=== PATIENT | female | born 1965 | race African-American/Black ===

== ENCOUNTER 2016-04-28 13:30 | Inpatient (IN) | payer OTHER ==
[2016-04-28 15:50] VITALS: BMI 35.2
--- NOTE | 2016-04-28 17:24 | HP ---
CIWA Score - CIWA Score Nausea/Vomitin-No Nausea/No Vomiting Muscle Tremors: 4-Moderate,w/Arms Extend Anxiety: 4-Mod. Anxious/Guarded Agitation: 4-Moderately Restless Paroxysmal Sweats: 1-Minimal Palms Moist Orientation: 0-Oriented Tacttile Disturbances: 3-Moderate Itch/Numb/Burn Auditory Disturbances: 0-None Visual Disturbances: 0-None Headache: 0-None Present CIWA-Ar Total Score: 16 Admission ROS BHS - HPI Chief Complaint: DETOX TX FOR ALCOHOL DEPENDENCE Allergies/Adverse Reactions: Allergies Allergy/AdvReac Type Severity Reaction Status Date / Time Penicillins Allergy Severe Difficulty Verified 04/28/16 16:06 Breathing History of Present Illness: 51 Y/O AA/FEMALE WITH A HX OF ALCOHOL AND COCAINE DEPENDENCE SEEKING DETOX TX. Exam Limitations: No Limitations - Ebola screening Have you traveled outside of the country in the last 21 days: No Have you had contact with anyone from an Ebola affected area: No Have you been sick,other than usual withdrawal symptoms: No - Review of Systems Constitutional: Chills, Night Sweats, Changes in sleep EENT: reports: Blurred Vision (WEARS GLASSES), Tearing, Nose Congestion, Dental Problems (NO TEETH), Throat Pain Respiratory: reports: Cough, Shortness of Breath (HX ASTHMA), Wheezing, Productive cough (YELLOW PHLEGM) Cardiac: reports: Lightheadedness GI: reports: Diarrhea, Nausea, Vomiting : reports: No Symptoms Reported Musculoskeletal: reports: Back Pain, Joint Pain, Muscle Pain Integumentary: reports: Dryness Neuro: reports: Dizziness Endocrine: reports: No Symptoms Reported Hematology: reports: Anemia Psychiatric: reports: Orientated x3, Anxious, Depressed Other Systems: Reviewed and Negative Patient History - Patient Medical History Hx Anemia: Yes Hx Asthma: Yes (MDI) Hx Chronic Obstructive Pulmonary Disease (COPD): No Hx Cardiac Disorders: Yes ("SLIGHT VA LAST MONTH") Hx Hypertension: No Hx Hypercholesterolemia: Yes (NORMALIZED WITH MEDS IN THE PAST. NO MEDS NOW.) HX Cerebrovascular Accident: No Hx Seizures: No Hx Diabetes: No Hx Gastrointestinal Disorders: Yes (GERD) Hx Genitourinary Disorders: No Hx Sexually Transmitted Disorders: No Hx Renal Disease (ESRD): No Hx Thyroid Disease: No Hx Human Immunodeficiency Virus (HIV): Yes (SINCE 1989-ON MEDS-LAST TAKEN ONE WEEK AGO PER PT.) Hx Hepatitis C: Yes Hx Depression: Yes Hx Suicide Attempt: No (DENIES) Hx Schizophrenia: No - Patient Surgical History Past Surgical History: Yes Hx Orthopedic Surgery: Yes (L KNEE AND L SHOULDER) Other Surgical History: TONSILLECTOMY Anesthesia Reaction: No - PPD History Previous Implant?: Yes Documented Results: Negative w/o proof Implanted On Prior [facility] Admission?: No PPD to be Administered?: Yes - Reproductive History Patient is a Female of Child Bearing Age (11 -55 yrs old): Yes (MENOPAUSAL) LMP comment: AT 36 YRS Patient : No - Smoking Cessation Smoking history: Current every day smoker Have you smoked in the past 12 months: Yes Aproximately how many cigarettes per day: 20 Hx Chewing Tobacco Use: No Initiated information on smoking cessation: Yes 'Breaking Loose' booklet given: 04/28/16 - Substance & Tx. History Hx Alcohol Use: Yes Hx Substance Use: Yes (COCAINE) Substance Use Type: Alcohol, Cocaine Hx Substance Use Treatment: Yes ([facility]-DETOX/REHAB) - Substances Abused Alcohol Route: Oral Frequency: Daily Amount used: 1 PINT VODKA Age of first use: 24 Date of Last Use: 04/28/16 Cocaine Route: Smoking Frequency: Daily Amount used: $100 AND UP Age of first use: 24 Date of Last Use: 04/28/16 Family Disease History - Family Disease History Family History: Denies Admission Physical Exam BHS - Vital Signs Vital Signs: Vital Signs - 24 hr 04/28/16 15:47 Temperature 98.1 F Pulse Rate 94 H Respiratory 20 Rate Blood Pressure 124/67 - Physical General Appearance: Yes: Moderate Distress, Obese, Irritable, Anxious HEENTM: Yes: EOMI, Normocephalic, GEMA, Pharynx Normal, Nasal Congestion, Rhinorrhea, Muffled/Hoarse Voice, Other (NO REDNESS OR SWELLING.) Respiratory: Yes: Chest Non-Tender, No Respiratory Distress, Wheezing Neck: Yes: Supple, Trachea in good position Breast: Yes: Breast Exam Deferred Cardiology: Yes: Regular Rhythm, Regular Rate, S1, S2 Abdominal: Yes: Normal Bowel Sounds, Non Tender, Soft Genitourinary: Yes: Other (N/C) Musculoskeletal: Yes: full range of Motion, Gait Steady Extremities: Yes: Normal Range of Motion, Non-Tender Neurological: Yes: 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 NML intact, Fully Oriented, Alert Integumentary: Yes: Dry, Warm Lymphatic: Yes: Within Normal Limits - Diagnostic (1) Alcohol dependence with uncomplicated withdrawal Current Visit: Yes Status: Acute (2) Cocaine dependence, uncomplicated Current Visit: Yes Status: Acute (3) HIV (human immunodeficiency virus infection) Current Visit: Yes Status: Acute (4) Asthma Current Visit: Yes Status: Chronic Qualifiers: Asthma severity: mild intermittent Asthma complication type: uncomplicated Qualified Code(s): J45.20 - Mild intermittent asthma, uncomplicated (5) GERD (gastroesophageal reflux disease) Current Visit: Yes Status: Chronic Qualifiers: Esophagitis presence: without esophagitis Qualified Code(s): K21.9 - Gastro-esophageal reflux disease without esophagitis (6) History of anemia Current Visit: Yes Status: Suspected Cleared for Admission S - Detox or Rehab [facility] Level of Care: Medically Managed Detox Regimen/Protocol: Librium S Breath Alcohol Content Breath Alcohol Content: 0 Urine Pregancy Test - Result Urine Test Results: Negative- NO Line Present Urine Drug Screen - Results Drug Screen Negative: No Urine Drug Screen Results: LARRY-Cocaine
[2016-04-28] MEDS ORDERED: hydrOXYzine PAMOATE 25 MG CAPSULE (FP) PO PRN (17:39)
[2016-04-28] MEDS ORDERED: guaiFENesin/D-METHORPHAN HB 10 ML UNIT-DOSE CUPS PO PRN (17:39)
[2016-04-28] MEDS ORDERED: NICOTINE POLACRILEX 4 MG GUM BUC PRN (17:39)
[2016-04-28] MEDS ORDERED: ACETAMINOPHEN 325 MG TABLET (FP) PO PRN (17:39)
[2016-04-28] MEDS ORDERED: MAGNESIUM CITRATE 300 ML BOTTLE PO PRN (17:39)
[2016-04-28] MEDS ORDERED: IBUPROFEN 400 MG TABLET (FP) PO PRN (17:39)
[2016-04-28] MEDS ORDERED: MAGNESIUM HYDROX 2400MG/30ML ORAL SUSPENSION 30 ML CUP PO PRN (17:39)
[2016-04-28] MEDS ORDERED: chlordiazePOXIDE HCL 25 MG CAPSULE PO PRN (17:39)
[2016-04-28] MEDS ORDERED: MENTHOL/PHENOL 1 EACH UD MM PRN (17:39)
[2016-04-28] MEDS ORDERED: MAG HYDROX/AL HYDROX/SIMETH 30 ML UNIT-DOSE CUP PO PRN (17:39)
[2016-04-28] MEDS ORDERED: P-EPHED 60MG/TRIPROLIDI 2.5MG TABLET PO PRN (17:39)
[2016-04-28] MEDS ORDERED: LOPERAMIDE HCL 2 MG CAPSULE PO PRN (17:39)
[2016-04-28] MEDS ORDERED: ALBUTEROL SO4 6.7 GM HFA INHALER IH PRN (17:43)
[2016-04-28] MEDS ORDERED: ALBUTEROL SO4 2.5/IPRATROPIUM 0.5 INH SOL 3 ML VIAL.NEB. NEB PRN (18:00)
[2016-04-28] MEDS ORDERED: AMMONIUM LACTATE 12% LOTION 225 GM BOTTLE TP PRN (18:10)
[2016-04-28] MEDS ORDERED: chlordiazePOXIDE HCL 25 MG CAPSULE PO ONE (18:15)
--- NOTE | 2016-04-28 19:02 | PN ---
BHS Progress Note Note: RECEIVED PHARMACIST CALL NEBULIZER SHOULD BE PRN
[2016-04-28] MEDS: NICOTINE 21 MG/24 HOURS TOPICAL PATCH TD SCH (19:16)
[2016-04-28] MEDS: chlordiazePOXIDE HCL 25 MG CAPSULE PO SCH ×2 (19:21→22:32)
[2016-04-28] MEDS ORDERED: diphenhydrAMINE HCL 50 MG CAPSULE PO PRN (22:00)
[2016-04-28] MEDS: BUDESONIDE/FORMETEROL FUMARATE 160/4.5 mcg INHALER IH SCH (22:32)
[2016-04-28] MEDS: THIAMINE HCL 100 MG TABLET (FP) PO SCH (22:32)
[2016-04-28] MEDS: MONTELUKAST NA 10 MG TABLET PO SCH (22:32)
[2016-04-28] MEDS: PATIENT'S OWN MEDICATION (NON-FORMULARY) (Doxycycline Hyclate [Doxycycline Hyclate] 100 MG PO SCH (23:10)
[2016-04-28] MEDS: PATIENT'S OWN MEDICATION (NON-FORMULARY) (Darunavir/Cobicistat [Prezcobix 800 Mg-150 Mg Ta PO SCH (23:10)
[2016-04-28] MEDS: PATIENT'S OWN MEDICATION (NON-FORMULARY) (Emtricitabine/Tenofov Alafenam [Descovy 200-25 M PO SCH (23:11)
[2016-04-28 23:15] LABS: URINE APPEARANCE SLCLOUDY; URINE BILIRUBIN NEGATIVE (NEGATIVE); URINE BLOOD NEGATIVE (NEGATIVE); URINE COLOR AMBER; URINE GLUCOSE (UA) NEGATIVE (NEGATIVE); URINE KETONE NEGATIVE (NEGATIVE); URINE LEUK ESTERASE NEGATIVE (NEGATIVE); URINE NITRITE NEGATIVE (NEGATIVE); URINE PROTEIN NEGATIVE (NEGATIVE); URINE UROBILINOGEN 4.0 E.U/dl E.U./dl (0.2-1.0)
[2016-04-29] MEDS: chlordiazePOXIDE HCL 25 MG CAPSULE PO SCH (05:55)
[2016-04-29] MEDS ORDERED: diazePAM 5 MG TABLET PO PRN (09:08)
[2016-04-29] MEDS ORDERED: diazePAM 5 MG TABLET PO ONE (09:08)
[2016-04-29 10:18] LABS: MCHC 32.3 g/dl (32.0-36.0); MEAN CELL VOLUME 80.4 fl (80-96); MEAN PLT VOLUME 8.7 fl (7.5-11.1); PLATELET COUNT 255 K/MM3 (134-434); RDW 13.7 % (11.6-15.6); WHITE BLOOD COUNT 5.3 K/mm3 (4.0-10.0)
[2016-04-29] MEDS: BUDESONIDE/FORMETEROL FUMARATE 160/4.5 mcg INHALER IH SCH ×2 (10:32→22:18)
[2016-04-29] MEDS: PRENATAL VITAMINS W/ FOLIC ACID TABLET (FP) PO SCH (10:32)
[2016-04-29] MEDS: PATIENT'S OWN MEDICATION (NON-FORMULARY) (Emtricitabine/Tenofov Alafenam [Descovy 200-25 M PO SCH (10:34)
[2016-04-29] MEDS: PATIENT'S OWN MEDICATION (NON-FORMULARY) (Doxycycline Hyclate [Doxycycline Hyclate] 100 MG PO SCH ×2 (10:35→22:20)
[2016-04-29] MEDS: PATIENT'S OWN MEDICATION (NON-FORMULARY) (Darunavir/Cobicistat [Prezcobix 800 Mg-150 Mg Ta PO SCH (10:35)
[2016-04-29] MEDS: NICOTINE 21 MG/24 HOURS TOPICAL PATCH TD SCH (10:37)
[2016-04-29] MEDS ORDERED: POTASSIUM CHLORIDE TABS 20 MEQ TABLET.ER (FP) PO ONE (10:40)
--- NOTE | 2016-04-29 10:40 | PN ---
S CIWA - CIWA Score Nausea/Vomitin Muscle Tremors: 3 Anxiety: 3 Agitation: 3 Paroxysmal Sweats: 1-Minimal Palms Moist Orientation: 0-Oriented Tacttile Disturbances: 1-Very Mild Itch/Numbness Auditory Disturbances: 1-Very Mild Visual Disturbances: 1-Very Mild Sensitivity Headache: 2-Mild CIWA-Ar Total Score: 18 S Progress Note (SOAP) Subjective: ALERT,IRRITABLE,ANXIOUS,INTERRUPTED SLEEP,TREMOR Objective: 04/29/16 10:36 Vital Signs Temperature 98.4 F 04/29/16 10:21 Pulse Rate 95 H 04/29/16 10:21 Respiratory Rate 18 04/29/16 10:21 Blood Pressure 115/74 04/29/16 10:21 O2 Sat by Pulse Oximetry (%) EKG NSR Laboratory Last Values WBC 5.3 K/mm3 (4.0-10.0) 04/29/16 06:00 RBC 5.55 M/mm3 (3.60-5.2) H 04/29/16 06:00 Hgb 14.4 GM/dL (10.7-15.3) 04/29/16 06:00 Hct 44.6 % (32.4-45.2) 04/29/16 06:00 MCV 80.4 fl (80-96) 04/29/16 06:00 MCHC 32.3 g/dl (32.0-36.0) 04/29/16 06:00 RDW 13.7 % (11.6-15.6) 04/29/16 06:00 Plt Count 255 K/MM3 (134-434) 04/29/16 06:00 MPV 8.7 fl (7.5-11.1) 04/29/16 06:00 Sodium 141 mmol/L (136-145) 04/29/16 06:00 Potassium 3.1 mmol/L (3.5-5.1) L 04/29/16 06:00 Chloride 98 mmol/L (98-107) 04/29/16 06:00 Urine Color Leann 04/28/16 23:00 Urine Appearance Slcloudy 04/28/16 23:00 Urine pH 6.0 (5.0-8.0) 04/28/16 23:00 Ur Specific [place] 1.016 (1.001-1.035) 04/28/16 23:00 Urine Protein Negative (NEGATIVE) 04/28/16 23:00 Urine Glucose (UA) Negative (NEGATIVE) 04/28/16 23:00 Urine Ketones Negative (NEGATIVE) 04/28/16 23:00 Urine Blood Negative (NEGATIVE) 04/28/16 23:00 Urine Nitrite Negative (NEGATIVE) 04/28/16 23:00 Urine Bilirubin Negative (NEGATIVE) 04/28/16 23:00 Urine Urobilinogen 4.0 e.u/dl E.U./dl (0.2-1.0) H 04/28/16 23:00 Ur Leukocyte Esterase Negative (NEGATIVE) 04/28/16 23:00 OTHER LABS PENDING Assessment: 04/29/16 10:38 WITHDRAWAL SYMPTOM Plan: CONTINUE DETOX,K 3.1,HYPOKALEMIA,KDUR 20 MEQ PO BID,PATIENT LIKE REGIMEN TO CHANGE TO VALIUM INSTEAD OF LIBRIUM
[2016-04-29 10:46] LABS: ALBUMIN 3.7 g/dl (3.4-5.0); BILIRUBIN,TOTAL 0.7 mg/dL (0.2-1.0); CALCIUM 9.8 mg/dL (8.5-10.1); CREATININE 1.1 mg/dL (0.55-1.02); TOT PROT 7.9 g/dl (6.4-8.2)
[2016-04-29] MEDS: MEGESTROL ACETATE 400 MG/10 ML UNIT DOSE CUP PO SCH ×2 (11:17→22:20)
[2016-04-29 12:04] LABS: SICKLE CELL SCREEN NEGATIVE (NEGATIVE)
[2016-04-29] MEDS: diazePAM 5 MG TABLET PO SCH ×2 (15:00→22:19)
--- NOTE | 2016-04-29 15:06 | CONSULT ---
[facility] Psychiatric Consult - Data Date of interview: 04/29/16 Admission source: [facility] Identifying data: Readmission to [facility] for this 51 y/o AA female seeking detox treatment on for alcohol and cocaine dependence.Patient is single, a mother of three,domiciled,unemployed and supported on SSI benefits. Substance Abuse History: - Smoking Cessation. Smoking history: Current every day smoker. Have you smoked in the past 12 months: Yes. Aproximately how many cigarettes per day: 20. Hx Chewing Tobacco Use: No. Initiated information on smoking cessation: Yes. 'Breaking Loose' booklet given: 04/28/16. - Substance & Tx. History. Hx Alcohol Use: Yes. Hx Substance Use: Yes (COCAINE). Substance Use Type: Alcohol, Cocaine. Hx Substance Use Treatment: Yes ([facility]- DETOX/REHAB). - Substances Abused. Alcohol. Route: Oral. Frequency: Daily. Amount used: 1 PINT VODKA. Age of first use: 24. Date of Last Use: 09/06. Cocaine. Route: Smoking. Frequency: Daily. Amount used: $100 AND UP. Age of first use: 24. Date of Last Use: 04/28/16. Confirmed by patient in this interview. Medical History: Anemia,bronchial asthma,hypercholesterolemia,GERD,HIV infection since 1989 (on ART medications),mild myocardial infarction (last month ),hepatitis C,history of orthosurgery for injury of left knee/shoulder and tonsillectomy. Psychiatric History: No reported history of psychiatric hospitalizations.Patient admits to OPD care at [facility].No recall of names of psychotropic drugs prescribed.Patient reports weeks of non- adherence to medications.Ms Sherwood endorses MDD and Anxiety Disorder.No history of suicide attempts. Physical/Sexual Abuse/Trauma History: Patient denies. Additional Comment: Urine Drug Screen Results: LARRY-Cocaine.Noted. Mental Status Exam - Mental Status Exam Alert and Oriented to: Time, Place, Person Cognitive Function: Grossly Intact Patient Appearance: Disheveled (edentulous) Mood: Withdrawn, Anxious Affect: Mood Congruent Patient Behavior: Appropriate, Cooperative Speech Pattern: Clear Voice Loudness: Normal Thought Process: Goal Oriented Thought Disorder: Not Present Hallucinations: Denies Suicidal Ideation: Denies Homicidal Ideation: Denies Insight/Judgement: Poor Sleep: Fair Appetite: Good Muscle strength/Tone: Normal Gait/Station: Normal Psychiatric Findings - Problem List ([place] 1, 2,3) (1) Alcohol dependence with uncomplicated withdrawal Current Visit: Yes Status: Acute (2) Cocaine dependence, uncomplicated Current Visit: Yes Status: Acute (3) Nicotine dependence Current Visit: Yes Status: Acute (4) Substance induced mood disorder Current Visit: Yes Status: Acute (5) HIV (human immunodeficiency virus infection) Current Visit: Yes Status: Chronic (6) Asthma Current Visit: Yes Status: Chronic Qualifiers: Asthma severity: mild intermittent Asthma complication type: uncomplicated Qualified Code(s): J45.20 - Mild intermittent asthma, uncomplicated (7) GERD (gastroesophageal reflux disease) Current Visit: Yes Status: Chronic Qualifiers: Esophagitis presence: without esophagitis Qualified Code(s): K21.9 - Gastro-esophageal reflux disease without esophagitis (8) History of anemia Current Visit: Yes Status: Suspected - Initial Treatment Plan Initial Treatment Plan: Psychoeducation.Detoxification.Patient is advised to keep her appointments with her providers at the [facility] OPD for renewal of her medications (after weeks of non-compliance).
[2016-04-29] MEDS ORDERED: chlordiazePOXIDE HCL 25 MG CAPSULE PO SCH (17:00)
--- NOTE | 2016-04-29 17:44 | EKG ---
Test Reason : Blood Pressure : / mmHG Vent. Rate : 075 BPM Atrial Rate : 075 BPM P-R Int : 154 ms QRS Dur : 084 ms QT Int : 412 ms P-R-T Axes : 065 030 047 degrees QTc Int : 460 ms NORMAL SINUS RHYTHM POSSIBLE LEFT ATRIAL ENLARGEMENT BORDERLINE ECG NO PREVIOUS ECGS AVAILABLE Confirmed by DERRICK XIONG MD ([id number]) on 04/29/2016 5:43:36 PM Referred By: Jevon Moeller Confirmed By:DERRICK XIONG MD
[2016-04-29] MEDS: THIAMINE HCL 100 MG TABLET (FP) PO SCH (22:19)
[2016-04-29] MEDS: MONTELUKAST NA 10 MG TABLET PO SCH (22:19)
[2016-04-29] MEDS: POTASSIUM CHLORIDE TABS 20 MEQ TABLET.ER (FP) PO SCH (22:19)
[2016-04-30] MEDS: diazePAM 5 MG TABLET PO SCH ×3 (05:35→22:31)
[2016-04-30] MEDS: PATIENT'S OWN MEDICATION (NON-FORMULARY) (Darunavir/Cobicistat [Prezcobix 800 Mg-150 Mg Ta PO SCH (10:39)
[2016-04-30] MEDS: PATIENT'S OWN MEDICATION (NON-FORMULARY) (Doxycycline Hyclate [Doxycycline Hyclate] 100 MG PO SCH ×2 (10:40→22:50)
[2016-04-30] MEDS: POTASSIUM CHLORIDE TABS 20 MEQ TABLET.ER (FP) PO SCH ×2 (10:40→22:29)
[2016-04-30] MEDS: MEGESTROL ACETATE 400 MG/10 ML UNIT DOSE CUP PO SCH ×2 (10:40→22:29)
[2016-04-30] MEDS: PRENATAL VITAMINS W/ FOLIC ACID TABLET (FP) PO SCH (10:40)
[2016-04-30] MEDS: PATIENT'S OWN MEDICATION (NON-FORMULARY) (Emtricitabine/Tenofov Alafenam [Descovy 200-25 M PO SCH (10:40)
[2016-04-30] MEDS: NICOTINE 21 MG/24 HOURS TOPICAL PATCH TD SCH (10:40)
[2016-04-30] MEDS: BUDESONIDE/FORMETEROL FUMARATE 160/4.5 mcg INHALER IH SCH ×2 (10:42→22:55)
--- NOTE | 2016-04-30 11:08 | PN ---
S CIWA - CIWA Score Nausea/Vomitin Muscle Tremors: 3 Anxiety: 3 Agitation: 3 Paroxysmal Sweats: 1-Minimal Palms Moist Orientation: 0-Oriented Tacttile Disturbances: 1-Very Mild Itch/Numbness Auditory Disturbances: 1-Very Mild Visual Disturbances: 1-Very Mild Sensitivity Headache: 2-Mild CIWA-Ar Total Score: 18 S Progress Note (SOAP) Subjective: ALERT,IRRITABLE,ANXIOUS,INTERRUPTED SLEEP,TREMOR Objective: 04/30/16 11:06 Vital Signs Temperature 98.6 F 04/30/16 09:57 Pulse Rate 84 04/30/16 09:57 Respiratory Rate 18 04/30/16 09:57 Blood Pressure 137/84 04/30/16 09:57 O2 Sat by Pulse Oximetry (%) 04/30/16 11:07 Laboratory Last Values WBC 5.3 K/mm3 (4.0-10.0) 04/29/16 06:00 RBC 5.55 M/mm3 (3.60-5.2) H 04/29/16 06:00 Hgb 14.4 GM/dL (10.7-15.3) 04/29/16 06:00 Hct 44.6 % (32.4-45.2) 04/29/16 06:00 MCV 80.4 fl (80-96) 04/29/16 06:00 MCHC 32.3 g/dl (32.0-36.0) 04/29/16 06:00 RDW 13.7 % (11.6-15.6) 04/29/16 06:00 Plt Count 255 K/MM3 (134-434) 04/29/16 06:00 MPV 8.7 fl (7.5-11.1) 04/29/16 06:00 Sickle Cell Screen Negative (NEGATIVE) 04/29/16 06:00 Sodium 141 mmol/L (136-145) 04/29/16 06:00 Potassium 3.1 mmol/L (3.5-5.1) L 04/29/16 06:00 Chloride 98 mmol/L (98-107) 04/29/16 06:00 Carbon Dioxide 32 mmol/L (21-32) 04/29/16 06:00 Anion Gap 11 (8-16) 04/29/16 06:00 BUN 5 mg/dL (7-18) L 04/29/16 06:00 Creatinine 1.1 mg/dL (0.55-1.02) H 04/29/16 06:00 Creat Clearance w eGFR 51.96 (>60) 04/29/16 06:00 Random Glucose 146 mg/dL (74-106) H 04/29/16 06:00 Calcium 9.8 mg/dL (8.5-10.1) 04/29/16 06:00 Total Bilirubin 0.7 mg/dL (0.2-1.0) 04/29/16 06:00 AST 56 U/L (15-37) H 04/29/16 06:00 ALT 40 U/L (12-78) 04/29/16 06:00 Alkaline Phosphatase 87 U/L (45-117) 04/29/16 06:00 Total Protein 7.9 g/dl (6.4-8.2) 04/29/16 06:00 Albumin 3.7 g/dl (3.4-5.0) 04/29/16 06:00 Urine Color Leann 04/28/16 23:00 Urine Appearance Slcloudy 04/28/16 23:00 Urine pH 6.0 (5.0-8.0) 04/28/16 23:00 Ur Specific [place] 1.016 (1.001-1.035) 04/28/16 23:00 Urine Protein Negative (NEGATIVE) 04/28/16 23:00 Urine Glucose (UA) Negative (NEGATIVE) 04/28/16 23:00 Urine Ketones Negative (NEGATIVE) 04/28/16 23:00 Urine Blood Negative (NEGATIVE) 04/28/16 23:00 Urine Nitrite Negative (NEGATIVE) 04/28/16 23:00 Urine Bilirubin Negative (NEGATIVE) 04/28/16 23:00 Urine Urobilinogen 4.0 e.u/dl E.U./dl (0.2-1.0) H 04/28/16 23:00 Ur Leukocyte Esterase Negative (NEGATIVE) 04/28/16 23:00 RPR Titer Nonreactive (NONREACTIVE) 04/29/16 06:00 Assessment: 04/30/16 11:07 WITHDRAWAL SYMPTOM Plan: CONTINUE DETOX,ON POTASSIUM REPLACEMENT
[2016-04-30] MEDS ORDERED: chlordiazePOXIDE 5 MG CAPSULE PO SCH (17:00)
[2016-04-30] MEDS: MONTELUKAST NA 10 MG TABLET PO SCH (22:29)
[2016-04-30] MEDS: THIAMINE HCL 100 MG TABLET (FP) PO SCH (22:30)
[2016-05-01] MEDS: POTASSIUM CHLORIDE TABS 20 MEQ TABLET.ER (FP) PO SCH ×2 (11:19→22:33)
[2016-05-01] MEDS: diazePAM 5 MG TABLET PO SCH ×2 (11:19→22:33)
[2016-05-01] MEDS: PATIENT'S OWN MEDICATION (NON-FORMULARY) (Darunavir/Cobicistat [Prezcobix 800 Mg-150 Mg Ta PO SCH (11:19)
[2016-05-01] MEDS: PRENATAL VITAMINS W/ FOLIC ACID TABLET (FP) PO SCH (11:19)
[2016-05-01] MEDS: NICOTINE 21 MG/24 HOURS TOPICAL PATCH TD SCH (11:20)
[2016-05-01] MEDS: MEGESTROL ACETATE 400 MG/10 ML UNIT DOSE CUP PO SCH ×2 (11:20→22:32)
[2016-05-01] MEDS: PATIENT'S OWN MEDICATION (NON-FORMULARY) (Doxycycline Hyclate [Doxycycline Hyclate] 100 MG PO SCH ×2 (11:20→22:37)
[2016-05-01] MEDS: BUDESONIDE/FORMETEROL FUMARATE 160/4.5 mcg INHALER IH SCH ×2 (11:20→22:33)
[2016-05-01] MEDS: PATIENT'S OWN MEDICATION (NON-FORMULARY) (Emtricitabine/Tenofov Alafenam [Descovy 200-25 M PO SCH (11:20)
--- NOTE | 2016-05-01 12:29 | PN ---
BHS Progress Note (SOAP) Subjective: tired sweats shakes interrupted sleep headache Objective: 05/01/16 12:28 Vital Signs Temperature 98.2 F 05/01/16 10:00 Pulse Rate 86 05/01/16 10:00 Respiratory Rate 18 05/01/16 10:00 Blood Pressure 131/56 05/01/16 10:00 O2 Sat by Pulse Oximetry (%) Laboratory Tests 04/28/16 04/29/16 04/29/16 23:00 06:00 06:00 WBC 5.3 RBC 5.55 H Hgb 14.4 Hct 44.6 MCV 80.4 MCHC 32.3 RDW 13.7 Plt Count 255 MPV 8.7 Sickle Cell Screen Negative Sodium 141 Potassium 3.1 L Chloride 98 Carbon Dioxide 32 Anion Gap 11 BUN 5 L Creatinine 1.1 H Creat Clearance w eGFR 51.96 Random Glucose 146 H Calcium 9.8 Total Bilirubin 0.7 AST 56 H ALT 40 Alkaline Phosphatase 87 Total Protein 7.9 Albumin 3.7 Urine Color Leann Urine Appearance Slcloudy Urine pH 6.0 Ur Specific [place] 1.016 Urine Protein Negative Urine Glucose (UA) Negative Urine Ketones Negative Urine Blood Negative Urine Nitrite Negative Urine Bilirubin Negative Urine Urobilinogen 4.0 e.u/dl H Ur Leukocyte Esterase Negative RPR Titer 04/29/16 06:00 WBC RBC Hgb Hct MCV MCHC RDW Plt Count MPV Sickle Cell Screen Sodium Potassium Chloride Carbon Dioxide Anion Gap BUN Creatinine Creat Clearance w eGFR Random Glucose Calcium Total Bilirubin AST ALT Alkaline Phosphatase Total Protein Albumin Urine Color Urine Appearance Urine pH Ur Specific [place] Urine Protein Urine Glucose (UA) Urine Ketones Urine Blood Urine Nitrite Urine Bilirubin Urine Urobilinogen Ur Leukocyte Esterase RPR Titer Nonreactive awake/alert ambulating no acute distress Assessment: 05/01/16 12:29 withdrawal sx Plan: continue detox increase fluids motrin/tylenol prn
[2016-05-01] MEDS ORDERED: chlordiazePOXIDE HCL 10 MG CAPSULE PO SCH (17:00)
[2016-05-01] MEDS: THIAMINE HCL 100 MG TABLET (FP) PO SCH (22:33)
[2016-05-01] MEDS: MONTELUKAST NA 10 MG TABLET PO SCH (22:33)
--- NOTE | 2016-05-02 09:01 | PN ---
BHS Progress Note (SOAP) Subjective: ALERT,IRRITABLE,ANXIOUS,INTERRUPTED SLEEP,STATED HISTORY OF HEMORRHOID,SEE BLOOD AFTER BOWEL MOVEMENT, Objective: 05/02/16 08:56 Vital Signs Temperature 98.2 F 05/02/16 06:25 Pulse Rate 71 05/02/16 06:25 Respiratory Rate 18 05/02/16 06:25 Blood Pressure 135/77 05/02/16 06:25 O2 Sat by Pulse Oximetry (%) 05/02/16 08:59 05/02/16 09:01 Assessment: 05/02/16 09:01 WITHDRAWAL SYMPTOM Plan: CONTINUE DETOX
--- NOTE | 2016-05-02 09:07 | PN ---
S Progress Note Note: PATIENT IS STABLE FOR DISCHARGE,FOLLOW UP WITH AFTER CARE PROGRAM ARRANGEMENT
--- NOTE | 2016-05-02 09:10 | DS ---
[facility] Detox Discharge Summary Admission Date: 04/28/16 Discharge Date: 05/02/16 - History Present History: Alcohol Dependence, Cocaine Dependence Additional Comments: FOLLOW UP WITH REVELATION ARRANGEMENT AND PMD FOR MEDICAL PROBLEM Pertinent Past History: HIV ASTHMA GERD HYPOKALEMIA HISTORY OF ANEMIA HEMORRHOIDS - Physical Exam Results Vital Signs: Vital Signs Temperature 98.2 F 05/02/16 06:25 Pulse Rate 71 05/02/16 06:25 Respiratory Rate 18 05/02/16 06:25 Blood Pressure 135/77 05/02/16 06:25 O2 Sat by Pulse Oximetry (%) Pertinent Admission Physical Exam Findings: WITHDRAWAL SYMPTOM - Treatment Hospital Course: Detox Protocol Followed, Detoxed Safely, Responded well, Discharged Condition Good - Medication Discharge Medications: Ambulatory Orders Albuterol Sulfate Inhaler - [Ventolin Hfa Inhaler -] 2 inh PO Q4H PRN 04/28/16 Budesonide/Formeterol Fumarate [SYMBICORT 160/4.5mcg -] 1 inh PO BID 04/28/16 Darunavir/Cobicistat [Prezcobix 800 mg-150 mg Tablet] 1 each PO DAILY 04/28/16 Doxycycline Hyclate 100 mg PO Q12H 04/28/16 Emtricitabine/Tenofov Alafenam [Descovy 200-25 mg Tablet] 1 each PO DAILY Montelukast Na [Singulair -] 10 mg PO HS 04/28/16 Mv,Ca,Fe,Min/FA/Guarana/Caff [One Daily Tablet] 1 each PO DAILY 04/28/16 Olanzapine [Zyprexa -] 10 mg PO DAILY 04/28/16 Sennosides [Senna] 3 tab PO HS PRN 04/28/16 Sertraline HCl [Zoloft -] 100 mg PO DAILY 04/28/16 - AMA Did Patient Leave Against Medical Advice: No
[2016-05-02] MEDS ORDERED: PHENYLEPHRINE 0.25%/STARCH 1 EACH SUPP.RECT RC SCH (10:00)
[2016-05-02] MEDS: PRENATAL VITAMINS W/ FOLIC ACID TABLET (FP) PO SCH (10:19)
[2016-05-02] MEDS: POTASSIUM CHLORIDE TABS 20 MEQ TABLET.ER (FP) PO SCH (10:19)
[2016-05-02] MEDS: diazePAM 5 MG TABLET PO SCH (10:19)
[2016-05-02] MEDS: PATIENT'S OWN MEDICATION (NON-FORMULARY) (Doxycycline Hyclate [Doxycycline Hyclate] 100 MG PO SCH (10:20)
[2016-05-02] MEDS: PATIENT'S OWN MEDICATION (NON-FORMULARY) (Darunavir/Cobicistat [Prezcobix 800 Mg-150 Mg Ta PO SCH (10:20)
[2016-05-02] MEDS: PATIENT'S OWN MEDICATION (NON-FORMULARY) (Emtricitabine/Tenofov Alafenam [Descovy 200-25 M PO SCH (10:20)
[2016-05-02] MEDS: BUDESONIDE/FORMETEROL FUMARATE 160/4.5 mcg INHALER IH SCH (10:21)
[2016-05-02] MEDS: NICOTINE 21 MG/24 HOURS TOPICAL PATCH TD SCH (10:21)
[2016-05-02] MEDS: MEGESTROL ACETATE 400 MG/10 ML UNIT DOSE CUP PO SCH (10:21)
[2016-05-02 10:25] VITALS: BP 124/62; PULSE 98; TEMP 97.1
[2016-05-03] MEDS ORDERED: diazePAM 5 MG TABLET PO SCH (10:00)
== END 2016-05-02 11:27 | disposition other institution (70) | DRG 774 ==
LOC: YASAS 13:30 → Y6N 17:26
PROVIDERS: ADMIT Internal Medicine; ATTEND Internal Medicine
PROC: HZ2ZZZZ Detoxification Services for Substance Abuse Treatment (ICD-10-PCS; principal; 2016-05-02)
DX: F10.230 Alcohol dependence with withdrawal, uncomplicated (principal); F14.20 Cocaine dependence, uncomplicated; F17.210 Nicotine dependence, cigarettes, uncomplicated; F19.24 Other psychoactive substance dependence with psychoactive substance-induced mood disorder; Z21 Asymptomatic human immunodeficiency virus [HIV] infection status; J45.20 Mild intermittent asthma, uncomplicated; K21.9 Gastro-esophageal reflux disease without esophagitis; Z86.2 Personal history of diseases of the blood and blood-forming organs and certain disorders involving the immune mechanism
CPT/HCPCS: 36415; 80053; 81003; 85027; 85660; 86593; 93005; 93010

== ENCOUNTER 2016-05-02 11:54 | Inpatient (IN) | payer OTHER ==
[2016-05-02 12:27] VITALS: BMI 34.4
[2016-05-02] MEDS ORDERED: SENNOSIDES 8.6MG TABLET (FP) PO PRN (13:17)
[2016-05-02] MEDS ORDERED: MENTHOL/PHENOL 1 EACH UD MM PRN (13:17)
[2016-05-02] MEDS ORDERED: P-EPHED 60MG/TRIPROLIDI 2.5MG TABLET PO PRN (13:17)
[2016-05-02] MEDS ORDERED: diphenhydrAMINE HCL 50 MG CAPSULE PO PRN (13:17)
[2016-05-02] MEDS ORDERED: MAG HYDROX/AL HYDROX/SIMETH 30 ML UNIT-DOSE CUP PO PRN (13:17)
[2016-05-02] MEDS ORDERED: MAGNESIUM HYDROX 2400MG/30ML ORAL SUSPENSION 30 ML CUP PO PRN (13:17)
[2016-05-02] MEDS ORDERED: MAGNESIUM CITRATE 300 ML BOTTLE PO PRN (13:17)
[2016-05-02] MEDS ORDERED: IBUPROFEN 400 MG TABLET (FP) PO PRN (13:17)
[2016-05-02] MEDS ORDERED: guaiFENesin/D-METHORPHAN HB 10 ML UNIT-DOSE CUPS PO PRN (13:17)
[2016-05-02] MEDS ORDERED: LOPERAMIDE HCL 2 MG CAPSULE PO PRN (13:17)
[2016-05-02] MEDS ORDERED: ACETAMINOPHEN 325 MG TABLET (FP) PO PRN (13:17)
[2016-05-02] MEDS ORDERED: ALBUTEROL SO4 6.7 GM HFA INHALER IH PRN (13:17)
--- NOTE | 2016-05-02 13:21 | HP ---
[facility] Rehab Assess/Revision - Admission History Admitted to Rehab from: [facility] [address] [place] Date of Admission to Rehab: 05/02/16 - Vital signs Vital Signs: Vital Signs Period Temp Pulse Resp BP Sys/Mcgee Pulse Ox Last 24 Hr 97.9 F-97.9 F 84-84 18-18 125-125/77-77 - Findings Detox History & Physical reviewed: Yes Concur with findings: Yes
[2016-05-02] MEDS: PATIENT'S OWN MEDICATION (NON-FORMULARY) (Doxycycline Hyclate [Doxycycline Hyclate] 100 MG PO SCH (18:35)
[2016-05-02] MEDS: BUDESONIDE/FORMETEROL FUMARATE 160/4.5 mcg INHALER IH SCH (21:43)
[2016-05-02] MEDS: POTASSIUM CHLORIDE TABS 20 MEQ TABLET.ER (FP) PO SCH (21:43)
[2016-05-02] MEDS ORDERED: THIAMINE HCL 100 MG TABLET (FP) PO SCH (22:00)
[2016-05-02] MEDS ORDERED: MONTELUKAST NA 10 MG TABLET PO SCH (22:00)
[2016-05-03 07:24] VITALS: BP 148/84; PULSE 73; TEMP 98.9
[2016-05-03] MEDS ORDERED: PATIENT'S OWN MEDICATION (NON-FORMULARY) (Emtricitabine/Tenofov Alafenam [Descovy 200-25 M PO SCH (10:00)
[2016-05-03] MEDS ORDERED: PATIENT'S OWN MEDICATION (NON-FORMULARY) (Darunavir/Cobicistat [Prezcobix 800 Mg-150 Mg Ta PO SCH (10:00)
[2016-05-03] MEDS ORDERED: PRENATAL VITAMINS W/ FOLIC ACID TABLET (FP) PO SCH (10:00)
[2016-05-03] MEDS: PATIENT'S OWN MEDICATION (NON-FORMULARY) (Doxycycline Hyclate [Doxycycline Hyclate] 100 MG PO SCH (10:00)
[2016-05-03] MEDS: POTASSIUM CHLORIDE TABS 20 MEQ TABLET.ER (FP) PO SCH (10:12)
[2016-05-03] MEDS: BUDESONIDE/FORMETEROL FUMARATE 160/4.5 mcg INHALER IH SCH (10:12)
== END 2016-05-03 10:20 | disposition left against medical advice (07) | DRG 770 ==
LOC: YASAS 11:54 → Y3E 11:55
PROVIDERS: ADMIT Psychiatry & Neurology Psychiatry; ATTEND Psychiatry & Neurology Psychiatry
PROC: HZ42ZZZ Group Counseling for Substance Abuse Treatment, Cognitive-Behavioral (ICD-10-PCS; principal; 2016-05-03)
DX: F10.230 Alcohol dependence with withdrawal, uncomplicated (principal); F14.20 Cocaine dependence, uncomplicated; F19.24 Other psychoactive substance dependence with psychoactive substance-induced mood disorder; Z21 Asymptomatic human immunodeficiency virus [HIV] infection status; J45.20 Mild intermittent asthma, uncomplicated; K21.9 Gastro-esophageal reflux disease without esophagitis; D64.9 Anemia, unspecified